=== PATIENT | male | born 1950 | race Caucasian/White ===

== ENCOUNTER 2017-01-28 12:06 | Emergency (ER) | payer OTHER, MEDICARE ==
[2017-01-28] MEDS ORDERED: NOVOLOG100 UNITS/ SC (12:17)
[2017-01-28] MEDS ORDERED: NOVOLIN N100 UNIT/2 SC ×2 (12:17)
[2017-01-28] MEDS ORDERED: ENALAPRIL (12:18)
[2017-01-28] MEDS ORDERED: METOPROLOL TAR100 M2 PO (12:18)
[2017-01-28] MEDS ORDERED: VITAMIN D (12:18)
[2017-01-28] MEDS ORDERED: LOSARTAN (12:18)
[2017-01-28] MEDS ORDERED: OMEPRAZOLE (12:18)
[2017-01-28] MEDS ORDERED: ASPIR 8181 M1 PO (12:19)
[2017-01-28] MEDS ORDERED: DULCOLAX STOOL100 M1 PO (15:03)
[2017-01-28] MEDS ORDERED: NORCO 5-325 TA1 EACH PO ×2 (15:03→15:05)
== END 2017-01-28 15:43 ==
LOC: EDMED 12:06
DX: S42.332A Displaced oblique fracture of shaft of humerus, left arm, initial encounter for closed fracture (principal); E11.9 Type 2 diabetes mellitus without complications; Z79.4 Long term (current) use of insulin; W01.0XXA Fall on same level from slipping, tripping and stumbling without subsequent striking against object, initial encounter; Y92.019 Unspecified place in single-family (private) house as the place of occurrence of the external cause
CPT/HCPCS: J2270